=== PATIENT | male | born 1980 | race African-American/Black ===

== ENCOUNTER 2017-07-31 10:29 | Emergency (ER) ==
[2017-07-31 10:42] VITALS: BP 180/121; TEMP 97.6; BMI 34.1
[2017-07-31] MEDS ORDERED: BOOSTRIX IM ONE (12:20)
--- NOTE | 2017-07-31 12:22 | ED.PDOC ---
General ED Provider: Dr. DANII MULTANI Chief Complaint: Puncture Wound Stated Complaint: Picked up some bailing wire yesterday at work and sustained a puncture wound Lt Hand. Not aware of metal breaking off of wire Time Seen by Physician: 11:40 Mode of Arrival: Walk-In Information Source: Patient Exam Limitations: No limitations Nursing and Triage Documentation Reviewed and Agree: Yes Reviewed sepsis parameters & appropriate labs ordered?: Yes System Inflammatory Response Syndrome: Not Applicable Sepsis Protocol: For patient's 13 years and over: Temp is 96.8 and below OR 101 and greater Pulse >90 BPM Resp >20/minute Acutely Altered Mental Status Are patient's symptoms suggestive of a new infection, such as: -Pneumonia -Skin, Soft Tissue -Endocarditis -UTI -Bone, Joint Infection -Implantable Device -Acute Abdominal Infection -Wound Infection -Meningitis -Blood Stream Catheter Infection -Unknown Review of Systems - Review Of Systems Constitutional: Reports: No symptoms Eyes: Reports: No symptoms Ears, Nose, Mouth, Throat: Reports: No symptoms Respiratory: Reports: No symptoms Cardiac: Reports: No symptoms GI: Reports: No symptoms : Reports: No symptoms Musculoskeletal: Reports: No symptoms Skin: Reports: No symptoms Neurological: Reports: No symptoms Endocrine: Reports: No symptoms Hematologic/Lymphatic: Reports: No symptoms All Other Systems: Reviewed and Negative Past Medical History - Past Medical History Previously Healthy: Yes Endocrine: Reports: None Cardiovascular: Reports: None Respiratory: Reports: None Hematological: Reports: None Gastrointestinal: Reports: None Genitourinary: Reports: None Neuro/Psych: Reports: None Musculoskeletal: Reports: None Cancer: Reports: None - Surgical History General Surgical History: Reports: None - Family History Family History: Reports: None - Social History Smoking Status: Never smoker Hx Substance Use: No Alcohol Screening: Occasionally - Immunizations Tetanus Shot up to Date: No (CAN'T REMEBER WHEN HE HAD LAST ONE.) Physical Exam - Physical Exam Appearance: Well-appearing, No pain distress, Well-nourished Ill-appearing: None Pain Distress: None Eyes: HAM, EOMI, Conjunctiva clear ENT: Ears normal, Nose normal, Oropharynx normal Respiratory: Airway patent, Breath sounds clear, Breath sounds equal, Respirations nonlabored Cardiovascular: RRR, Pulses normal, No rub, No murmur GI/: Soft, Nontender, No masses, Bowel sounds normal, No Organomegaly Musculoskeletal: Normal strength, ROM intact, No edema (lt hand minimally edematous and tender at site of wound), No calf tenderness Skin: Warm, Dry, Normal color Neurological: Sensation intact, Motor intact, Reflexes intact, Cranial nerves intact, Alert, Oriented Psychiatric: Affect appropriate, Mood appropriate Critical Care Note - Critical Care Note Total Time (mins): 0 Course - Course Orders, Labs, Meds: Orders Category Date Time Status Wound care [ED WOUND CARE] .ONCE EMERGENCY 07/31/17 12:21 Active Clonidine HCl [Catapres] MEDS 07/31/17 13:47 Discontinued 0.1 mg PO ONCE STA Diphth,Pertuss(Acell),Tet Vac [Boostrix] MEDS 07/31/17 12:20 Discontinued 0.5 ml IM .ONCE ONE HAND, LEFT 3 VIEWS Stat RADS 07/31/17 12:20 Completed Medications Discontinued Medications Generic Name Dose Route Start Last Admin Trade Name Freq PRN Reason Stop Dose Admin Clonidine 0.1 mg 07/31/17 13:47 07/31/17 13:54 Catapres PO 07/31/17 13:48 0.1 mg ONCE STA Administration Diphtheria/Pertussis/Tetanus Vacc 0.5 ml 07/31/17 12:20 07/31/17 13:07 Boostrix IM 07/31/17 12:21 0.5 ml .ONCE ONE Administration Vital Signs: Temp Pulse Resp BP Pulse Ox 07/31/17 10:31 97.6 F 74 16 180/121 H 93 L Departure - Departure Time of Disposition: 14:00 Disposition: HOME SELF-CARE Discharge Problem: Puncture wound, Hypertension, uncontrolled Condition: Good Pt referred to PMD for follow-up: Yes (See Dr Skelton in next 48 hours ) IPMP verified?: No Prescriptions: Cephalexin [Keflex] 500 mg PO BID #14 capsule Clonidine HCl [Catapres] 0.1 mg PO BID #14 tablet Allergies/Adverse Reactions: Allergies No Known Allergies Allergy (Unverified 07/31/17 10:34) Home Medications: Ambulatory Orders Atorvastatin Calcium [Lipitor] 40 mg PO BEDTIME 07/31/17 Cephalexin [Keflex] 500 mg PO BID #14 capsule 07/31/17 Clonidine HCl [Catapres] 0.1 mg PO BID #14 tablet 07/31/17 Empagliflozin [Jardiance] 25 mg PO DAILY 07/31/17 Lisinopril 20 mg PO DAILY 07/31/17 Metformin HCl 1,000 mg PO BID 07/31/17 Metformin HCl 500 mg PO DAILY 07/31/17 Disposition Discussed With: Patient Musculoskeletal Complaint Exam - Hand/Wrist Complaint/Exam Location of Pain: Reports: Left Mechanism of Injury: Reports: Trauma Onset/Duration: 24 hr Symptoms Are: Still present Onset of Pain: Reports: Immediate Initial Severity: Moderate Current Severity: None Location: Reports: Discrete Character: Reports: Aching Alleviating: Reports: None Aggravating: Reports: None Associated Signs and Symptoms: Reports: Swelling, Numbness (and tingling yesterday but better today) Related History: Reports: Occupational injury Dominant Hand: Right Related Surgical History: Reports: None Hand/Wrist Findings: Present: Swelling, Warmth Compartment Syndrome Risk Factors: Present: Pain Differential Diagnoses: Puncture Wound
--- NOTE | 2017-07-31 12:58 | DI ---
Exam: Three views of the left hand. Comparison: None available. Reason for exam: Puncture wound. FINDINGS: No acute fracture or malalignment. The joint spaces appear well maintained. No unexplain ed calcific soft tissue density or radiopaque retained foreign body. 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 Impression: No acute fracture or dislocation in the left hand
[2017-07-31] MEDS ORDERED: CATAPRES PO STA (13:47)
== END 2017-07-31 14:25 | disposition home or self-care (01) ==
LOC: ED 10:29
DX: S61.432A Puncture wound without foreign body of left hand, initial encounter (principal); W26.8XXA Contact with other sharp object(s), not elsewhere classified, initial encounter; I16.0 Hypertensive urgency
CPT/HCPCS: 90471; 90715; 99283